=== PATIENT | male | born 1940 | race Hispanic/Latino ===

== ENCOUNTER 2016-12-08 06:23 | Day surgery (SDC) | payer MEDICARE ==
[2016-12-08] MEDS ORDERED: Propofol 10 mg/ml Inj (20 ML) ONE ×2 (07:37→08:09)
[2016-12-08] MEDS ORDERED: Lidocaine Hydrochloride 5 ML INJ ONE (07:37)
[2016-12-08 07:58] VITALS: TEMP 97
[2016-12-08] MEDS ORDERED: Lactated Ringer's 500 ML IV SCH (08:45)
--- NOTE | 2016-12-08 09:10 | CP.SDSHP ---
Same Day Surgery H & P - History Proposed Procedure: EGD Pre-Op Diagnosis: Dyspepsia, fecal occult blood positive - Previous Medical/Surgical History Cardiac: Hypertension, ASHD/CAD, Valvular Heart Disease Previous Surgical History: right hemicolectomy, AVR, Cardiac catheterizatin, TURP - Allergies Allergies: Allergies No Known Allergies Allergy (Verified 12/08/16 07:13) - Current Medications Current Medications: See reconciliation sheet - Physical Exam General Appearance: WD WN male in NAD Vital Signs: Vital Signs 12/08/16 07:00 Temperature 97 F L Pulse Rate 65 Respiratory 19 Rate Blood Pressure 140/68 O2 Sat by Pulse 98 Oximetry Mental Status: Alert & Oriented x3 Neuro: WNL Heart: WNL Lungs: WNL GI: WNL - {Optional Preform as Required} Abdomen: WNL - Impression Impression: Dyspepsia, fecal occult blood positive Pt. Evaluated Today:Candidate for Anesthesia & Procedure: Yes - Date & Time Date: 12/08/16 Time: 09:10 Short Stay Discharge - Short Stay Discharge Admitting Diagnosis/Reason for Visit: DYSPEPSIA / HIATAL HERNIA Disposition: HOME/ ROUTINE
[2016-12-08 10:37] VITALS: O2SAT 100
[2016-12-08 10:40] VITALS: PULSE 56
[2016-12-08 11:14] VITALS: BP 133/46; RESP 14
[2016-12-08] MEDS ORDERED: Phenylephrine 10 mg/ml Inj ONE (11:21)
--- NOTE | 2016-12-09 18:44 | CARD ---
APPROVED REPORT EKG Measurement Heart [id number] CT [id number] <Conclusion> Unusual P axis, possible ectopic atrial rhythm Incomplete left bundle branch block Minimal voltage criteria for LVH, may be normal variant Abnormal ECG
== END 2016-12-08 10:55 | disposition home or self-care (01) ==
LOC: C.ENDO 06:23
PROVIDERS: ATTEND Internal Medicine Gastroenterology
DX: K44.9 Diaphragmatic hernia without obstruction or gangrene (principal); K30 Functional dyspepsia; K31.7 Polyp of stomach and duodenum
CPT/HCPCS: 43250; 82948; 88305; 93005; J2370; J2704; J7120